=== PATIENT | male | born 1960 | race Two or more races ===

== ENCOUNTER 2017-12-27 08:28 | Emergency (ER) | payer MEDICAID ==
[~2017-12-27] VITALS: Ht 162.6 cm; Wt 86.2 kg
[2017-12-27 09:00] LABS: Basophils # (auto) 0.1 uL; Basophils % (auto) 0.6 % (0.0-2.0); Eosinophils # (auto) 0.2 uL; Eosinophils % (auto) 1.8 % (0.0-7.0); Hematocrit 45.8 % (41.0-53.0); Hemoglobin 15.2 g/dL (13.5-17.5); Lymphocytes # (auto) 3.4 uL; Lymphocytes % (auto) 34.2 % (10.0-50.0); Mean Corpuscular Hemoglobin 30.4 pg (28.0-32.0); Mean Corpuscular Hgb Conc. 33.1 g/dL (32.0-36.0); Mean Corpuscular Volume 91.9 fL (80.0-100.0); Monocytes # (auto) 1.1 uL; Monocytes % (auto) 11.1 % (0.0-12.0); Neutrophils # (auto) 5.1 uL; Neutrophils % (auto) 52.3 % (37.0-80.0); Nucleated Red Blood Cells % 0.1 %; Platelet Count (auto) 208 10^3/uL (140-450); Red Blood Cells 4.98 10^6/uL (4.5-5.90); Red Cell Distribution Width 13.8 % (11.8-14.3); White Blood Cell 9.8 10^3/uL (4.4-10.8)
[2017-12-27 09:13] LABS: Albumin 3.5 g/dL (3.4-5.0); BUN/Creatinine Ratio 13.5; Calcium 8.8 mg/dL (8.5-10.1); Potassium 4.1 mmol/L (3.5-5.1)
[2017-12-27 09:17] LABS: Bilirubin, Total 0.6 mg/dL (0.2-1.0); Total Protein 7.2 g/dL (6.4-8.2)
[2017-12-27 09:21] VITALS: BP 124/74
== END 2017-12-27 11:46 | disposition home or self-care (01) ==
LOC: ER 08:28
DX: R06.00 Dyspnea, unspecified (principal); E11.9 Type 2 diabetes mellitus without complications; E78.5 Hyperlipidemia, unspecified
CPT/HCPCS: 36415; 71046; 80053; 82962; 85025; 85379; 93005; 94761

== ENCOUNTER 2018-05-20 19:31 | Emergency (ER) | payer MEDICAID ==
[~2018-05-20] VITALS: Ht 172.7 cm; Wt 86.2 kg
[2018-05-20] MEDS ORDERED: LIDOCAINE W/ EPINEPHRINE 2% INJ 20ML VIAL ONE (21:26)
[2018-05-20] MEDS ORDERED: LIDOCAINE W/ EPINEPHRINE 1% 20ML VIAL IJ ONE (21:30)
[2018-05-20 21:34] VITALS: BP 118/74
[2018-05-20] MEDS ORDERED: cefTRIAXone SOD 1,000 MG VL IM ONE (22:00)
[2018-05-20] MEDS ORDERED: HYDROcodone-ACET 5/325MG TAB PO ONE (22:30)
[2018-05-20] MEDS ORDERED: TETANUS-DIPTH-ACEL PERTUSSIS 0.5ML SYRG IM ONE (22:30)
== END 2018-05-20 22:34 | disposition home or self-care (01) ==
LOC: ER 19:31
DX: S61.412A Laceration without foreign body of left hand, initial encounter (principal); W31.89XA Contact with other specified machinery, initial encounter; Y93.89 Activity, other specified; Y99.8 Other external cause status; Y92.89 Other specified places as the place of occurrence of the external cause
CPT/HCPCS: 12002; 73130; 90471; 90715; 96372; 99284; J0696

== ENCOUNTER 2023-07-02 22:09 | Emergency (ER) | payer MEDICAID ==
[~2023-07-02] VITALS: Ht 167.6 cm; Wt 81.0 kg
[2023-07-03] MEDS ORDERED: AUG875T PO (00:29)
[2023-07-03 00:34] VITALS: BP 125/79; PULSE 89; RESP 16; TEMP 97.7; O2SAT 97
== END 2023-07-03 00:54 | disposition home or self-care (01) ==
LOC: ER 22:09
DX: M79.671 Pain in right foot (principal); E11.9 Type 2 diabetes mellitus without complications; E78.5 Hyperlipidemia, unspecified
CPT/HCPCS: 73630